=== PATIENT | male | born 1950 | race Caucasian/White ===

== ENCOUNTER 2017-07-06 19:47 | Emergency (ER) | payer OTHER ==
[2017-07-06] MEDS: ALBUTEROL/IPRATROPIUM (NEB) 3 ML AMP HHN (23:49)
[2017-07-07] MEDS: IBUPROFEN 600 MG TAB PO (00:32)
== END 2017-07-07 00:37 | disposition home or self-care (01) ==
LOC: FTE 07-07 00:37
DX: R05 Cough (principal); R50.9 Fever, unspecified; J02.9 Acute pharyngitis, unspecified; R09.81 Nasal congestion; R51 Headache
CPT/HCPCS: 71020; 94664; 99284-25

== ENCOUNTER 2019-03-21 21:30 | Emergency (ER) | payer OTHER | END 2019-03-22 01:40 | disposition home or self-care (01) | LOC: FTE 21:30 | DX: J40 Bronchitis, not specified as acute or chronic (principal) | CPT/HCPCS: 71045; 99283-25 ==